=== PATIENT | male | born 1960 | race Caucasian/White ===

== ENCOUNTER 2022-07-23 02:41 | Emergency (ER) | payer OTHER ==
[2022-07-23] MEDS ORDERED: predniSONE 20 MG Tab PO ONE (03:30)
== END 2022-07-23 03:31 | disposition home or self-care (01) ==
LOC: DL.ED 02:41
DX: R06.02 Shortness of breath (principal); J44.9 Chronic obstructive pulmonary disease, unspecified
CPT/HCPCS: 99283; J7512

== ENCOUNTER 2023-09-22 14:05 | Emergency (ER) | payer OTHER ==
[2023-09-22] MEDS ORDERED: Sodium Chloride 0.9% 10 ML Syringe FLUSH PRN (14:14)
[2023-09-22 14:34] VITALS: BP 146/69; PULSE 86
[2023-09-22 14:47] LABS: BASOPHILS PERCENT AUTO 0.5 % (0.0-1.0); EOSINOPHILS PERCENT AUTO 3.2 % (1.0-3.0); HEMATOCRIT 41.7 % (40.0-54.0); HEMOGLOBIN 13.8 g/dL (14.0-18.0); LYMPHOCYTES PERCENT AUTO 19.9 % (20.5-50.1); MEAN CORPUSCULAR HEMOGLOBIN 29.9 pg (27.0-34.0); MEAN CORPUSCULAR HGB CONC 33.1 g/dL (33.0-35.0); MEAN CORPUSCULAR VOLUME 90.5 fL (80-100); MONOCYTES PERCENT AUTO 7.4 % (2-8); PLATELET COUNT,PLT 315 10^3/uL (150-450); RED BLOOD CELL COUNT 4.61 10^6/uL (4.6-6.2); WHITE BLOOD CELL COUNT,WBC 8.5 10^3/uL (5.0-10.0)
[2023-09-22 15:08] LABS: ALANINE AMINOTRANSFERASE,ALT 21 U/L (16-63); ALBUMIN 3.3 g/dL (3.4-5.0); ALKALINE PHOSPHATASE 53 U/L (46-116); AMYLASE 75 U/L (25-115); ANION GAP 10.1 mEq/L (7-13); ASPARTATE AMNIOTRANSFERASE,AST 15 U/L (15-37); BILIRUBIN TOTAL 0.2 mg/dL (0.2-1.0); BLOOD UREA NITROGEN,BUN 23 mg/dL (7-18); BUN/CREATININE RATIO 23.5 (No establ ref range); CALCIUM 8.7 mg/dL (8.5-10.1); CARBON DIOXIDE,CO2 30 mmol/L (21-32); CHLORIDE,CL 105 mmol/L (98-107); CREATININE 0.98 mg/dL (0.70-1.30); EST CRCL DRUG DOSING (CG) 77.14 mL/min; GLUCOSE RANDOM 104 mg/dL (70-99); LIPASE 44 U/L (16-77); POTASSIUM,K 4.1 mmol/L (3.5-5.1); PROTEIN TOTAL,TP 6.4 g/dL (6.4-8.2); SODIUM,NA 141 mmol/L (136-145)
[2023-09-22 15:09] LABS: A/G RATIO 1.06; ESTIMATED GFR 86 mL/min (>=60)
[2023-09-22 15:10] LABS: C-REACTIVE PROTEIN < 0.50 ng/dL (<=0.50)
[2023-09-22] MEDS ORDERED: Iopamidol 612 MG/ML 100 ML Bottle IVPUSH ONE (15:28)
== END 2023-09-22 17:24 | disposition home or self-care (01) ==
LOC: DL.ED 14:05
DX: K31.89 Other diseases of stomach and duodenum (principal); Z86.16 Personal history of COVID-19; F17.200 Nicotine dependence, unspecified, uncomplicated
CPT/HCPCS: 36415; 74177; 80053; 82150; 83605; 83690; 84145; 85025; 86140; 99284; J3490; Q9967

== ENCOUNTER 2023-11-14 05:17 | Day surgery (SDC) | payer OTHER, MEDICARE ==
[2023-11-14] MEDS ORDERED: fentaNYL 100 MCG/2 ML SDV IV ONE (05:18)
[2023-11-14] MEDS ORDERED: Midazolam 1 MG/ML 2 ML SDV IV ONE (05:18)
[2023-11-14] MEDS ORDERED: fentaNYL 100 MCG/2 ML SDV ONE (06:10)
[2023-11-14] MEDS ORDERED: Midazolam 1 MG/ML 2 ML SDV ONE (06:10)
[2023-11-14] MEDS: Dextrose 5%-0.45% NaCl 1,000 ML IV SCH (06:10)
[2023-11-14] MEDS: fentaNYL 100 MCG/2 ML SDV IV ONE ×2 (06:24→06:25)
[2023-11-14] MEDS: Midazolam 1 MG/ML 2 ML SDV IV ONE ×2 (06:25→06:26)
[2023-11-14 06:44] VITALS: PULSE 73
[2023-11-14 07:42] VITALS: BP 142/62
== END 2023-11-14 08:12 | disposition home or self-care (01) ==
LOC: DL.ENDO 05:17
PROVIDERS: ATTEND Internal Medicine Gastroenterology
DX: K29.50 Unspecified chronic gastritis without bleeding (principal); B96.81 Helicobacter pylori [H. pylori] as the cause of diseases classified elsewhere; J44.9 Chronic obstructive pulmonary disease, unspecified; F17.210 Nicotine dependence, cigarettes, uncomplicated
CPT/HCPCS: 43239; 87077; J2250; J3010; J7042

== ENCOUNTER 2024-01-23 00:18 | Emergency (ER) | payer MEDICARE, OTHER ==
[2024-01-23 00:49] VITALS: BP 160/81; PULSE 95
[2024-01-23] MEDS: Doxycycline Monohydrate 100 MG Cap PO ONE (00:56)
== END 2024-01-23 01:07 | disposition home or self-care (01) ==
LOC: DL.ED 00:18
DX: J18.9 Pneumonia, unspecified organism (principal); I10 Essential (primary) hypertension; J44.9 Chronic obstructive pulmonary disease, unspecified; F17.210 Nicotine dependence, cigarettes, uncomplicated; Z86.16 Personal history of COVID-19; Z79.82 Long term (current) use of aspirin; Z79.51 Long term (current) use of inhaled steroids; Z79.899 Other long term (current) drug therapy
CPT/HCPCS: 99284; A9270

== ENCOUNTER 2024-03-23 06:53 | Day surgery (SDC) | payer MEDICARE, OTHER ==
[~2024-03-23 06:53] MED LIST: Midazolam 1 MG/ML 2 ML SDV ONE; fentaNYL 100 MCG/2 ML SDV ONE
[2024-03-23] MEDS: Dextrose 5%-0.45% NaCl 1,000 ML IV SCH (07:18)
[2024-03-23] MEDS: fentaNYL 100 MCG/2 ML SDV IV ONE ×2 (08:04→08:05)
[2024-03-23] MEDS: Midazolam 1 MG/ML 2 ML SDV IV ONE ×6 (08:05→08:30)
[2024-03-23 10:05] VITALS: BP 155/79; PULSE 70
== END 2024-03-23 10:00 | disposition home or self-care (01) ==
LOC: DL.ENDO 06:53
PROVIDERS: ATTEND Internal Medicine Gastroenterology
DX: D12.0 Benign neoplasm of cecum (principal); D12.5 Benign neoplasm of sigmoid colon; K62.1 Rectal polyp; K57.30 Diverticulosis of large intestine without perforation or abscess without bleeding
CPT/HCPCS: 45385; J2250; J3010; J7042